=== PATIENT | female | born 1945 | race Caucasian/White ===

== ENCOUNTER 2017-06-22 16:30 | Inpatient (IN) | payer MEDICARE ==
[~2017-06-22] VITALS: Ht 149.9 cm; Wt 84.3 kg
--- NOTE | 2017-06-22 16:26 | NUR ---
TRANSFER FROM ADMISSIONS BY W/C. OREINTED TO ROOM. CALL LIGHT IN REACH. WILL CONT. PLAN OF CARE.
[~2017-06-22 16:30] MED LIST: GLIPIZIDE10 MG PO; RENAGEL800 MG PO
[2017-06-22] MEDS ORDERED: PACERONE200 MG PO ×2 (16:31→19:42)
[2017-06-22] MEDS ORDERED: METOPROLOL TART25 MG PO (16:31)
[2017-06-22] MEDS ORDERED: HYDRALAZINE HCL50 MG PO (16:32)
[2017-06-22] MEDS ORDERED: JANUVIA25 MG PO (16:32)
[2017-06-22] MEDS ORDERED: PRINIVIL20 MG PO (16:32)
[2017-06-22] MEDS ORDERED: SENSIPAR30 MG PO (16:33)
[2017-06-22] MEDS ORDERED: NAMENDA5 MG PO (16:34)
[2017-06-22] MEDS ORDERED: BAYER CHEWABLE81 MG PO (16:34)
[2017-06-22] MEDS ORDERED: REGLAN5 MG PO (16:35)
[2017-06-22] MEDS ORDERED: NEPHRO-VITE RX1 TAB PO (16:36)
[2017-06-22] MEDS ORDERED: LANTUS SOL100 UNIT/1 SC (16:38)
[2017-06-22 16:54] VITALS: BP 151/52; BMI 37.4
--- NOTE | 2017-06-22 17:19 | NUR ---
CONSENTS SIGNED FOR SURGERY. EKG COMPLETED.
[2017-06-22 17:56] LABS: BASOPHILS 0.5 % (0-2); EOSINOPHILS 2.4 % (0-7); HEMATOCRIT 37.1 % (36.0-48.0); HEMOGLOBIN 11.7 g/dL (12-16); IMMATURE GRANULOCYTES 0.2 % (0-5); LYMPHOCYTES 24.4 % (15-50); MCH 32.8 pg (26.0-34.0); MCHC 31.5 g/dL (31.0-37.0); MCV 103.9 fL (80.0-100.0); MEAN PLATELET VOLUME 10.4 fL (7.4-10.4); MONOCYTES 11.6 % (2-11); NEUTROPHILS 60.9 % (40-80); PLATELET COUNT 157 10x3/uL (130-400); RBC 3.57 10x6/uL (4.00-5.40); RDW 12.3 % (11.5-14.5); WBC 6.2 10x3/uL (4.8-10.8)
[2017-06-22 18:09] LABS: APTT 24.7 SECONDS (22.8-39.4); CALCIUM 9.1 mg/dL (8.5-10.1); CARBON DIOXIDE 31.7 mmol/L (21.0-32.0); CREATININE - SERUM 6.4 mg/dL (0.6-1.3); INR 0.97 (0.85-1.17); POTASSIUM - SERUM 4.7 mmol/L (3.5-5.1); PROTIME 12.7 SECONDS (11.6-15.0)
[2017-06-22 19:00] VITALS: BP 176/54
--- NOTE | 2017-06-22 22:30 | NUR ---
R AC 20 GUAGE X 1.
--- NOTE | 2017-06-23 | NUR ---
NPO FOR SURG. PT SLEEPING NO DISTRESS NOTED.
--- NOTE | 2017-06-23 03:00 | NUR ---
SLEEPING NO DISTRESS NOTED. SR UP X 2.
[2017-06-23 04:00] VITALS: BP 149/62
--- NOTE | 2017-06-23 05:00 | NUR ---
CHLORAHEXADINE BATH GIVEN,. NO CO AT TIME.
--- NOTE | 2017-06-23 07:15 | NUR ---
ASSESSMENT DONE. DENIES NEEDS.
[2017-06-23 07:54] VITALS: BP 153/38
--- NOTE | 2017-06-23 09:34 | NUR ---
RESTS WITH EYES CLOSED. NPO FOR SURGERY. WILL CONT. PLAN OF CARE.
--- NOTE | 2017-06-23 10:24 | NUR ---
PT PREOP FOR OR. TO OR VIA BED.
--- NOTE | 2017-06-23 10:33 | NUR ---
TO OR PER BED
[2017-06-23 10:56] VITALS: Ht 149.9 cm; Wt 84.3 kg
[2017-06-23 14:16] VITALS: BP 165/73
--- NOTE | 2017-06-23 17:30 | NUR ---
WITHOUT CHANGES OR DISTRESS NOTED AT THIS TIME. CARLITA NEEDS.
[2017-06-23 19:00] VITALS: BP 154/45
--- NOTE | 2017-06-23 20:03 | NUR ---
RECEIVED REPORT, PT WATCHING TV, DENIES ANY NEEDS AT THIS TIME, BED IS LOW, SRX2, CALL LIGHT IN REACH, WILL CONTINUE PLAN OF CARE
--- NOTE | 2017-06-24 03:47 | NUR ---
ASSESSMENT COMPLETE, SEE FLOWSHEET, PT IS SLEEPING, BED IS LOW, SRX2, CALL LIGHT IN REACH, WILL CONTINUE PLAN OF CARE
[2017-06-24 04:00] VITALS: BP 121/37
--- NOTE | 2017-06-24 05:45 | NUR ---
BLOODSUGAR-50- GAVE KANCHAN & VANESSAAKERS
[2017-06-24 06:06] LABS: ALBUMIN 2.9 g/dL (3.4-5.0); ANION GAP 11.7 mmol/L (8-16); BILIRUBIN - TOTAL 0.37 mg/dL (0.2-1.3); CALCIUM 8.5 mg/dL (8.5-10.1); CARBON DIOXIDE 28.6 mmol/L (21.0-32.0); POTASSIUM - SERUM 5.3 mmol/L (3.5-5.1); PROTEIN - SERUM 6.3 g/dL (6.4-8.2)
[2017-06-24 06:11] LABS: CREATININE - SERUM 8.9 mg/dL (0.6-1.3)
--- NOTE | 2017-06-24 07:42 | NUR ---
NOTIFIED DR. SIM THAT WE CALLED A CODE, THOUGHT PT HAD FALLEN, SHE SAID SHE DIDNT THAT SHE WAS CHOKING ON A DRY ROLL, ASLSO INFORMED JORDIN MIRAMONTES (DAUGHTER ) EXOPLAINED WHAT HAD HAPPENED
[2017-06-24 08:00] VITALS: BP 141/44
--- NOTE | 2017-06-24 08:00 | NUR ---
PT LYING QUIETLY. DENIES ANY NEEDS. RIGHT AC SL. RIGHT AVF NOTED. WILL MONITOR
--- NOTE | 2017-06-24 09:03 | OP ---
PATIENT NAME: JULIO SRIVASTAVA MEDICAL RECORD: [id number] :44 LOCATION:D.M2 D.2126 ADMISSION DATE:06/23/17 SURGEON: OUSMANE SIM MD DATE OF OPERATION: 06/23/2017 REFERRING PHYSICIANS: Dr. Burroughs and Dr. Fitzgerald. 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 OPERATION PERFORMED: Left arm AV fistulogram carried through to the right atrium and balloon angioplasty of a 95% recurrent short segment stenosis of the cephalic arch dilated with an 8 mm and high pressure angioplasty balloon. Exclusion of infected aneurysmal AV fistula body and implantation of an Acuseal early stick PTFE AV graft between the brachial artery and the antecubital space and the proximal cephalic vein with end-to-end anastomosis to the artery, utilizing the cuff of remaining vein for the end-to-end anastomosis and an end-to-side graft to vein proximal anastomosis. Also, debridement of shallow ulceration of the erythematous skin overlying the pseudoaneurysm and percutaneous aspiration of blood from the pseudoaneurysm sent for culture. SURGEON: Ousmane Sim MD ANESTHESIA: General with LMA per CYBER INCIDENT HANDLER. PREOPERATIVE NOTE: Ms. Srivastava is a 71-year-old diabetic, obese white female with end-stage renal disease, who has been dialyzing for quite some time now with a left arm brachiocephalic fistula. She has had problems with a cephalic arch stenosis in the past and also has had an area of erythema and induration and ulceration overlying the body of her fistula where she has a pseudoaneurysm and perigraft or perifistula hematoma roughly the size of a tennis ball. She was admitted to the hospital yesterday. I am concerned for the potential risk of severe hemorrhage or exsanguination. She is brought to the operating room at this time for fistulogram and indicated procedures. DESCRIPTION OF PROCEDURE: Under general anesthesia in supine position, the patient was prepped and draped in a sterile manner. I accessed the fistula, which was rather pulsatile in the upper half above the area of induration and erythema and ulceration was accessed with micropuncture technique and this led up to placement of a 6-Kyrgyz introducer. Contrast injection demonstrated a single fairly short segment stenosis of 95% in the cephalic arch, which did not involve the orifice of the cephalic arch in the axillary or subclavian system. There was no other venous obstruction centrally all the way to the right atrium. A wire was easily passed across the area of stenosis and the cephalic arch stenosis dilated with a quest high pressure balloon with an 8-mm diameter quest balloon inflated to 20 atmospheres to open the area of stenosis. Then with the balloon inflated, a retrograde study was obtained, which demonstrated a patent artery above and below and good looking arteriovenous anastomosis. I then made a transverse antecubital incision and exposed the fistula arterial anastomosis and controlled it with Silastic loop and I dissected above the antecubital space OPERATIVE REPORT [id number] JULIO SRIVASTAVA and encircled the dilated cephalic vein with first with Silastic loop and layer of #0 silk tie. I made another incision over the vein in the upper arm just lateral to the axilla. The cephalic vein was exposed and dissected from the surrounding structures for a distance of about an inch and was controlled with Silastic loops. The vessels were treated with topical papaverine and topical Ancef/gentamicin solution. The patient was given 2000 units of heparin systemically and after 3 minutes, the fistula was clamped and the vein just above the arterial anastomosis divided, the vein above that was ligated with #0 silk. I chose a 6-mm diameter 40 cm long Acuseal graft and performed an end-to-end anastomosis with running 6-0 Prolene. After that, there was good back bleeding from the graft and I then flushed the graft and artery with heparinized saline and clamped the graft. The graft was then placed in a subcutaneous tunnel, very shallow from that site up to the upper arm incision where it was then shortened and beveled and anastomosed end-to-side that is graft to side of artery, again probably to side of vein, again with continuous running 6-0 Prolene. With completion of the last anastomosis and release of the occluding clamps and loops, excellent flow was established in the new AV graft. The patient's heparin was partially reversed with 10 mg of protamine. The wounds were irrigated with Ancef/gentamicin solution. Hemostasis obtained with electrocautery and the wound was infiltrated with 0.25% Marcaine without epinephrine. The wounds were then closed with interrupted inverted 3-0 Vicryl and running intracuticular 4-0 Monocryl and Dermabond glue. They were dressed with Maxorb Ag, Tegaderm and Cavilon skin prep. The area of ulceration was debrided with gauze and basically the scab came off leaving intact healed pink skin beneath. On close examination, there was no evidence of an underlying abscess or fistulous tract. I used an 18-gauge needle and syringe to penetrate this erythematous skin and aspirate any subcutaneous fluid and there was none. I then advanced the needle into the old AV fistula of lumen and aspirated some blood from that and this blood was sent for anaerobic and aerobic culture and sensitivity. The needle was withdrawn and hemostasis obtained with a period of mild direct pressure and observation. That site as well as the puncture site from the 6-Kyrgyz introducer were dressed then with Maxorb and Tegaderm with Cavilon skin prep. The patient was awakened and taken to the recovery room. Blood loss during the operation was essentially none. None was replaced. All sponges, instruments and needles were accounted for. No drain was used and no surgical specimen was submitted for histopathology. Only the bloody fluid was submitted for culture. PLAN: The patient will be able to dialyze tomorrow using her new Acuseal graft and following Acuseal protocol. She very likely unless there is medical complication, which needs to be addressed. She will go home tomorrow and continue her usual outpatient dialysis schedule, using the Acuseal graft and following for 2 weeks, the Acuseal protocol, that is the technologist to access in graft is to wear sterile gloves. They will use 17-gauge needles for the first 2 weeks and for the first 2 weeks flow should not exceed 400 cc per minute. TRANSINT:[id number] Voice Confirmation ID: [id number] DOCUMENT ID: [id number] OPERATIVE REPORT [id number] JULIO SRIVASTAVA JAMES MD at 0903 CC: OLIVIER BURROUGHS MD and MANSI FITZGERALD MD [id number] DICTATION DATE: 06/23/17 1417 CONE WINDER: 06/23/172230 ADM IN [facility] [address] [place] [address]
--- NOTE | 2017-06-24 11:33 | NUR ---
DRIVEWAY SEALER AT BEDSIDE FOR VS. NEEDS ADDRESSED, CONT TO MONITOR.
[2017-06-24 11:53] VITALS: BP 146/41
--- NOTE | 2017-06-24 18:24 | NUR ---
PT HAVING DIAYLIS. NO NEEDS VOICED
--- NOTE | 2017-06-24 19:30 | NUR ---
RECEIVED PT IN BED C/O OF FEELING WEAK AND TIRED JUST FINISHED DIALYSIS ALERT AND ORIENTED WILL CONTINUE TO MONITOR
[2017-06-24 20:00] VITALS: BP 130/41
--- NOTE | 2017-06-24 21:50 | NUR ---
FSBS 181 LANTUS 10 UNITS GIVEN SQ ABDOMEN
[2017-06-25] VITALS: BP 104/34
--- NOTE | 2017-06-25 03:06 | NUR ---
RESTING QUIETLY EYES CLOSED RESP UNLABORED NAD NOTED
[2017-06-25 04:00] VITALS: BP 136/33
--- NOTE | 2017-06-25 07:50 | NUR ---
ASSESSMENT COMPLETED. PT HAS A LEFT ARM AVF. RIGHT AC SL NOTED. DENIES ANY NEEDS. UP AB MENDEL. READY FOR DISCHARGE. WILL MONITOR
[2017-06-25 08:34] VITALS: BP 194/71
--- NOTE | 2017-06-25 10:05 | NUR ---
PT DISCHARGED. IV DCD WITH TIP INTACK. INSTRUCTIONS GIVEN TO PT. TO PRIVATE CAR PER WHEELCHAIR
== END 2017-06-25 11:07 | disposition home or self-care (01) | DRG 252 ==
LOC: OBSVTIME → D.OPS 16:30 → EDSTATUS 06-23 10:00 → D.M2 06-23 15:55
PROVIDERS: Surgery; ADMIT Internal Medicine Nephrology
PROC: 057F3ZZ Dilation of Left Cephalic Vein, Percutaneous Approach (ICD-10-PCS; 2017-06-23)
PROC: 03180JF Bypass Left Brachial Artery to Lower Arm Vein with Synthetic Substitute, Open Approach (ICD-10-PCS; 2017-06-23)
PROC: B51W1ZZ Fluoroscopy of Dialysis Shunt/Fistula using Low Osmolar Contrast (ICD-10-PCS; principal; 2017-06-23 10:00)
PROC: 5A1D00Z (ICD-10-PCS; 2017-06-24)
DX: T82.858A Stenosis of other vascular prosthetic devices, implants and grafts, initial encounter (principal); N18.6 End stage renal disease; L03.114 Cellulitis of left upper limb; I12.0 Hypertensive chronic kidney disease with stage 5 chronic kidney disease or end stage renal disease; T82.7XXA Infection and inflammatory reaction due to other cardiac and vascular devices, implants and grafts, initial encounter; K21.9 Gastro-esophageal reflux disease without esophagitis; I10 Essential (primary) hypertension; E11.22 Type 2 diabetes mellitus with diabetic chronic kidney disease; Z99.2 Dependence on renal dialysis; Z79.4 Long term (current) use of insulin

== ENCOUNTER 2017-08-07 15:50 | Inpatient (IN) | payer MEDICARE ==
[~2017-08-07] VITALS: Ht 149.9 cm; Wt 85.7 kg
[~2017-08-07 15:50] MED LIST changes: +BAYER CHEWABLE81 MG PO; +HYDRALAZINE HCL50 MG PO; +JANUVIA25 MG PO; +LANTUS SOL100 UNIT/1 SC; +METOPROLOL TART25 MG PO; +NAMENDA5 MG PO; +NEPHRO-VITE RX1 TAB PO; +PACERONE200 MG PO; +PRINIVIL20 MG PO; +REGLAN5 MG PO; +SENSIPAR30 MG PO
--- NOTE | 2017-08-07 16:38 | NUR ---
PT RECIEVED TO ROOM FROM ADMISSIONS. RR EVEN AND UNLABORED, VSS. PT DENIES NEEDS AT THIS TIME. CONSENTS OBTIANED FOR PROCEDURE. INTRODUCED SELF AND PLACED NAME ON WHITE BOARD, WILL CTM.
[2017-08-07 16:44] LABS: BASOPHILS 0.1 % (0-2); EOSINOPHILS 0.3 % (0-7); HEMATOCRIT 24.4 % (36.0-48.0); HEMOGLOBIN 7.8 g/dL (12-16); IMMATURE GRANULOCYTES 0.2 % (0-5); LYMPHOCYTES 10.7 % (15-50); MCH 32.8 pg (26.0-34.0); MCV 102.5 fL (80.0-100.0); MEAN PLATELET VOLUME 9.5 fL (7.4-10.4); MONOCYTES 6.6 % (2-11); NEUTROPHILS 82.1 % (40-80); PLATELET COUNT 200 10x3/uL (130-400); RBC 2.38 10x6/uL (4.00-5.40); RDW 14.4 % (11.5-14.5); WBC 12.5 10x3/uL (4.8-10.8)
--- NOTE | 2017-08-07 17:00 | NUR ---
STARTED 20G IV TO RIGHT WRIST X1 STICK. DRESSING CDI. PT TOLERATED WELL.
[2017-08-07 17:02] LABS: CALCIUM 8.5 mg/dL (8.5-10.1); CARBON DIOXIDE 19.4 mmol/L (21.0-32.0); CREATININE - SERUM 14.6 mg/dL (0.6-1.3)
[2017-08-07 17:15] LABS: POTASSIUM - SERUM 6.4 mmol/L (3.5-5.1)
[2017-08-07 17:18] VITALS: BP 114/39
--- NOTE | 2017-08-07 17:40 | NUR ---
PT TRANSFERED TO SURGERY VIA BED. WILL CTM WHEN PT RETURNS FROM PROCEDURE.
[2017-08-07 19:00] VITALS: BP 106/59
--- NOTE | 2017-08-07 19:25 | NUR ---
PATIENT STATES NO FAMILY WITH HER PREOPERATIVELY.
--- NOTE | 2017-08-07 19:26 | NUR ---
SMALL SKIN TEAR NOTED ON LEFT FOREARM.
--- NOTE | 2017-08-07 19:50 | NUR ---
RECIEVED TO ROOM 2125 FROM O.R. VITALS STABLE, 97 TEMP, BP 110/70, HR 77, RESPERATION EVEN AT 20, SPO2 97% ON O2 AT 3 LITER. PLACED ON TELEMETRY, 73 SR PER MT. DRSG TO LEFT CHEST FROM HEMOSPLIT PLACEMENT C/D/I. PT DENIES PAIN OR NEEDS, BED LOW, CL IN REACH.
[2017-08-07 19:56] VITALS: BP 110/59
--- NOTE | 2017-08-07 20:13 | NUR ---
SPOKE WITH TG IN DIALYSIS, TRANSFERRING PT DOWN BY BED.
--- NOTE | 2017-08-07 23:15 | NUR ---
PT STILL IN DIALYSIS.
[2017-08-08] VITALS: BP 93/51
--- NOTE | 2017-08-08 02:15 | NUR ---
RESTING WITH EYES CLOSED, RESPERATIONS EVEN NO S/S DISTRESS NOTED.
--- NOTE | 2017-08-08 02:54 | NUR ---
CALL LIGHT IN REACH, WILL CONTINUE WITH PLAN OF CARE.
[2017-08-08 04:03] VITALS: BP 101/59
--- NOTE | 2017-08-08 07:24 | NUR ---
AM ROUNDS- PT IN BED, DENIES ANY NEEDS AT THIS TIME. BED LOW AND WHEELS LOCKED, BEDSIDE RAILS X2, CALL LIGHT IN REACH, RESP EVEN AND UNLABORED, RT WRIST IV SL. NAD NOTED, WILL CONTINUE TO MONITOR.
[2017-08-08 07:43] LABS: BASOPHILS 0.3 % (0-2); EOSINOPHILS 1.8 % (0-7); IMMATURE GRANULOCYTES 0.2 % (0-5); LYMPHOCYTES 14.8 % (15-50); MCH 32.6 pg (26.0-34.0); MCHC 31.8 g/dL (31.0-37.0); MCV 102.7 fL (80.0-100.0); MEAN PLATELET VOLUME 10.1 fL (7.4-10.4); MONOCYTES 6.4 % (2-11); NEUTROPHILS 76.5 % (40-80); RDW 14.3 % (11.5-14.5)
[2017-08-08 07:56] LABS: WBC 6.2 10x3/uL (4.8-10.8)
[2017-08-08 07:57] LABS: HEMATOCRIT 19.2 % (36.0-48.0); HEMOGLOBIN 6.1 g/dL (12-16); PLATELET COUNT 118 10x3/uL (130-400); RBC 1.87 10x6/uL (4.00-5.40)
[2017-08-08 08:00] VITALS: BP 123/46
[2017-08-08 08:03] LABS: ANION GAP 13.4 mmol/L (8-16); CALCIUM 7.6 mg/dL (8.5-10.1); POTASSIUM - SERUM 5.6 mmol/L (3.5-5.1)
[2017-08-08 08:04] LABS: CARBON DIOXIDE 29.2 mmol/L (21.0-32.0); CREATININE - SERUM 8.1 mg/dL (0.6-1.3)
[2017-08-08 10:38] VITALS: Ht 149.9 cm; Wt 85.7 kg
--- NOTE | 2017-08-08 10:52 | OP ---
PATIENT NAME: JULIO SRIVASTAVA MEDICAL RECORD: [id number] :44 LOCATION:D. D.2126 ADMISSION DATE:08/07/17 SURGEON: OUSMANE SIM MD DATE OF OPERATION: 08/07/2017 REFERRED BY: Dr. Ferguson PREOPERATIVE DIAGNOSES: End-stage renal disease, dependent on hemodialysis, thrombosis of left arm AV graft and morbid obesity. POSTOPERATIVE DIAGNOSES: End-stage renal disease, dependent on hemodialysis, thrombosis of left arm AV graft and morbid obesity. OPERATION PERFORMED: Insertion of a left internal jugular 19 cm tunneled HemoSplit dialysis catheter done with ultrasound and fluoroscopic guidance. SURGEON: Ousmane Sim MD ANESTHESIA: General with LMA per ANDROID ARCHITECT. PREOPERATIVE NOTE: Ms. Srivastava is a morbidly obese diabetic hypertensive white female with end-stage renal disease and has been dialyzing with a left arm AV fistula graft hybrid that thrombosed and attempts to perform mechanical thrombectomy today at [facility] were unsuccessful. She needs to dialyze and Dr. Ferguson has consulted me. We discussed this on the telephone extensively earlier today. The patient was admitted to the hospital and she is kept n.p.o. and brought to the operating room to implant a tunneled HemoSplit dialysis catheter. She will need a new access in the next few weeks. Under general anesthesia in supine position, the patient was prepped and draped in sterile manner. The neck examined with ultrasound, I found the right internal jugular vein was gone from prior use for dialysis access I am sure. The thyroid was quite enlarged and encroached on the carotid and jugular vessels bilaterally. The left internal jugular vein was opened and of normal caliber. I made an incision and then through that incision with ultrasound guidance, inserted a needle and guidewire via the internal jugular vein. Under fluoroscopy, I advanced dilators over the guidewire and lastly a dilator peel-away introducer. I chose a 19-cm HemoSplit catheter and placed it in a short subcutaneous tunnel from remote entry site and it was inserted through the peel-away sheath. Final fluoroscopic exam demonstrated satisfactory placement of the catheter tip in the right atrium. This was with the Dacron felt cuff all the way up to the cervical incision. The catheter was accessed and aspirated, free return of blood from each lumen confirmed. It was then flushed with saline and then heparin lock, clamped and capped. It was sutured to the skin with a 2-0 silk. The entry wound was snugged up around the catheter with a single intracuticular inverted 3-0 Vicryl suture and the cervical incision was closed with inverted intracuticular 3-0 Vicryl and Dermabond glue and dressed with Maxorb AG and Tegaderm. The catheter at the entry site was dressed with a Biopatch and a central venous dressing. The patient was awakened and taken to the recovery room in stable condition. She will have a chest x-ray there and then we will go on back to her room on med 2 and then have dialysis later this evening. Blood loss during the operation about 10 cc, none was replaced. All sponges, instruments and needles were accounted for. No drain was used and no surgical specimen was submitted for histopathology. OPERATIVE REPORT [id number] JULIO SRIVASTAVA MARCH I will plan to reevaluate the patient over the next few days and plan for her to be returned to the operating room in the next few weeks for a new access. TRANSINT:[id number] Voice Confirmation ID: [id number] DOCUMENT ID: [id number] OUSMANE SIM MD at 1052 CC: CRISTHIAN FERGUSON MD [id number] DICTATION DATE: 08/07/171900 WORKERS COMPENSATION ADMINISTRATOR: 08/08/17 0117 ADM IN [facility] [address] [place] [address]
[2017-08-08 12:00] VITALS: BP 127/40
--- NOTE | 2017-08-08 12:08 | NUR ---
FIRST UNIT OF PRBCS STARTED INFUSING, VITAL SIGNS STABLE. PT DENIES ANY NEEDS AT THIS TIME. CALL LIGHT IN REACH, NAD NOTED, WILL CONTINUE TO MONITOR.
--- NOTE | 2017-08-08 15:32 | NUR ---
FIRST UNIT OF PRBCS DONE INFUSING AT THIS TIME. SECOND UNIT HUNG AT THIS TIME. PT IN BED, DENIES ANY NEEDS AT THIS TIME. CALL LIGHT IN REACH, NAD NOTED, WILL CONTINUE TO MONITOR.
[2017-08-08 16:00] VITALS: BP 143/51
--- NOTE | 2017-08-08 16:00 | NUR ---
PT TRANSFERED TO DIALYSIS VIA WHEELCHAIR, NAD NOTED.
--- NOTE | 2017-08-08 18:44 | NUR ---
PT TRANSFERED BACK TO ROOM 2125 FROM DIALYSIS, NAD NOTED, PT DENIES ANY NEEDS AT THIS TIME. REPOSITIONED PT UP IN BED. PT DENIES ANY NEEDS AT THIS TIME CALL LIGHT IN REACH, NAD NOTED, WILL CONTINUE TO MONITOR.
[2017-08-08 19:00] VITALS: BP 140/63
--- NOTE | 2017-08-08 19:30 | NUR ---
RESTING QUIETLY WATCHING TV RESP UNLABORED DENIES ANY NEEDS OR DISCOMFORT NAD NOTED
--- NOTE | 2017-08-08 20:30 | NUR ---
PT STANDING AT SIDE OF BED WITH GOWN OFF AND SCREAMING, "HELP ME, WHERE AM I, HELP ME" ASSISTED PT BACK TO BED, EXPALINED TO PT THAT SHE IS IN THE HOSPITAL AND SHE IS HERE BECAUSE HER FISTULA WASNT WORKING AND THAT SHE HAD TO HAVE A DIALYSIS CATHETER PLACED, PT STATED THAT SHE ALREADY KNEW THAT BUT THEN STILL INSISTED THAT SHE WAS NOT IN THE HOSPITAL AND THAT SHE WAS IN THE WRONG ROOM. REPOSITIONED IN BED FOR COMFORT, ATIVAN 2 MG GIVEN FOR S/S AGITAITON. BED LOW, CL IN REACH, SR UP X3, BED ALARM IN USE FOR PT SAFETY. WILL CONT TO MONITOR.
[2017-08-08 22:18] LABS: HEMATOCRIT 28.3 % (36.0-48.0); HEMOGLOBIN 9.4 g/dL (12-16)
[2017-08-09] VITALS: BP 122/57
--- NOTE | 2017-08-09 00:21 | NUR ---
SAMPLE FINISHER AT BED SIDE, BATH AND LINEN CHANGE COMPLETE. DRSG TO LEFT CHEST HEMOSPILT CHANGED USING STERILE TECHNIQUE. REPOSITIONED IN BED FOR COMFORT. BED LOW, CL IN REACH, BED ALARM IN USE.
--- NOTE | 2017-08-09 02:58 | NUR ---
RESTING WITH EYES CLOSED, RESPERATIONS EVEN, NO S/S DISTRESS NOTED.
--- NOTE | 2017-08-09 03:23 | NUR ---
PT CLIMBING OUT OF BED, DRSG TO LEFT CHEST HEMOSPLIT OFF, PT SLAPPING MY HAND I TRY TO REPLACED DRSG, INFORMED PT THAT I HAVE TO REPLACED DRSG BECAUSE IT HELPS KEEP INFECTION AWAY AND THAT SHE NEEDS TO QUIET PULLING AT THE CATHETERS BECAUSE IF SHE PULLS THEM OUT IT WILL HURT HER AND SHE WILL BLEED ALOT, PT CONFUSED AND STATES THAT SHE NEEDS GET OUT OF HERE AND GO TO THE HOSPITAL, INFORMED PT THAT SHE IS IN THE HOSPITAL AND THAT WE ARE HERE TO HELP HER. ATIVAN 2 MG GIVEN FOR S/S AGITATION. BED LOW, CL IN REACH, BED ALARM IN USE.
[2017-08-09 04:37] VITALS: BP 135/73
[2017-08-09 08:42] VITALS: BP 147/55
--- NOTE | 2017-08-09 09:51 | NUR ---
OUT TO DIALYSIS
--- NOTE | 2017-08-09 13:00 | NUR ---
BACK FROM DIALYSIS - RESTING IN BED - DENIES ANY NEEDS AT THIS TIME
--- NOTE | 2017-08-09 15:54 | NUR ---
RESTING R SIDE W/ EYES CLOSED
--- NOTE | 2017-08-09 16:29 | NUR ---
Patient Name: JULIO BRAMBILA Admission Status: Urgent Accout number: [id number] Admission Date: 08-07-2017 : 1945 Admission Diagnosis: Attending: MANSI FITZGERALD Current LOS: 2 Anticipated DC Date: 08-09-2017 Planned Disposition: Home Primary Insurance: MEDICARE A & B Discharge Planning Comments: * Is the patient Alert and Oriented? Yes 0 * How many steps to enter\exit or inside your home? 3 0 * PCP DR. SOLORIO 0 * Pharmacy [facility] 0 * Preadmission Environment Home with Family 0 * ADLs Independent 0 * Equipment Cane Walker 0 * Other Equipment NO MEDICAL EQUIPMENT PROVIDER PREFERENCE 0 * List name and contact numbers for known caregivers / representatives who currently or will assist patient after discharge: JORDIN MIRAMONTES, DAUGHTER, 0 * Community resources currently utilized None 0 * Please name any agencies selected above. OUTPATIENT DIALYSIS, [facility], MWF, [facility] 0 * Additional services required to return to the preadmission environment? No 0 * Can the patient safely return to the preadmission environment? Yes 0 * Has this patient been hospitalized within the prior 30 days at any hospital? No [address] FITZGERALD WHO REPORTED THAT PT IS READY TO DISCHARGE TODAY IF PT HAS A RIDE HOME. CM MET WITH PT IN ROOM TO DISCUSS DISCHARGE PLANNING AND NEEDS. PT REPORTS LIVING AT HOME INDEPENDENTLY WITH HER GRANSON THAT ASSISTS WITH ANYTHING THAT SHE MIGHT NEED. PT HAS CANE AND WALKER WITH NO MEDICAL EQUIPMENT PROVIDER PREFERENCE. PT HAS AND NO OUTSIDE SERVICES ASSISTING IN THE HOME. PT ATTENDS OUTPATIENT DIALYSIS, MWF IN [facility], [facility] TRANSPORTATION TO AND FROM DIALYSIS. CM DISCUSSED AVAILABILITY OF HOME HEALTH, REHAB SERVICES AND MEDICAL EQUIPMENT. PT DENIES DISCHARGE NEEDS, REPORTS HER DAUGHTER WILL PICK HER UP FOR DISCHARGE HOME, ASKED CM TO CALL HER TODAY. IMPORTANT MESSAGE FROM MEDICARE PROVIDED AND EXPLAINED. CM CALLED PT'S DAUGHTER, JORDIN MIRAMONTES, DAUGHTER, , WHO REPORTS SHE WAS WAITING FOR THE CALL TO PICK HER MOTHER UP AND WILL BE THERE IN ABOUT 2 HOURS. CM NOTIFIED PT AND COMMERCIAL LEASING AGENT NURSE. RENAL NURSE ROD NOTIFIED FOR DISCHARGE ORDERS. Recruiter Account Manager: Darius Evans
--- NOTE | 2017-08-09 18:47 | NUR ---
PIV D/C WITH CATH INTACT. DISCHARGE TEACHING PROVIDED AND PAPERS SIGNED. PT LEAVING NOW. NO FURTHER NEEDS.
[2017-08-10 09:17] LABS: HEPATITIS C ANTIBODY <0.1 (0.0-0.9)
== END 2017-08-09 18:48 | disposition home or self-care (01) | DRG 314 ==
LOC: D.M2 15:50
PROVIDERS: Surgery; ADMIT Internal Medicine Nephrology
PROC: B5181ZA Fluoroscopy of Superior Vena Cava using Low Osmolar Contrast, Guidance (ICD-10-PCS; 2017-08-07)
PROC: B548ZZA Ultrasonography of Superior Vena Cava, Guidance (ICD-10-PCS; 2017-08-07)
PROC: 02HV33Z Insertion of Infusion Device into Superior Vena Cava, Percutaneous Approach (ICD-10-PCS; principal; 2017-08-07 14:15)
DX: T82.868A Thrombosis due to vascular prosthetic devices, implants and grafts, initial encounter (principal); N18.6 End stage renal disease; I12.0 Hypertensive chronic kidney disease with stage 5 chronic kidney disease or end stage renal disease; Y83.8 Other surgical procedures as the cause of abnormal reaction of the patient, or of later complication, without mention of misadventure at the time of the procedure; E11.22 Type 2 diabetes mellitus with diabetic chronic kidney disease; Z99.2 Dependence on renal dialysis; E87.5 Hyperkalemia; R41.0 Disorientation, unspecified; D63.1 Anemia in chronic kidney disease; E66.01 Morbid (severe) obesity due to excess calories; Z68.38 Body mass index [BMI] 38.0-38.9, adult

== ENCOUNTER 2017-08-30 17:14 | Inpatient (IN) | payer MEDICARE ==
[2017-08-30 21:40] LABS: BASOPHILS 0.2 % (0-2); EOSINOPHILS 2.5 % (0-7); HEMATOCRIT 27.1 % (36.0-48.0); HEMOGLOBIN 8.6 g/dL (12-16); IMMATURE GRANULOCYTES 0.7 % (0-5); LYMPHOCYTES 19.8 % (15-50); MCHC 31.7 g/dL (31.0-37.0); MCV 103.8 fL (80.0-100.0); MONOCYTES 9.9 % (2-11); NEUTROPHILS 66.9 % (40-80); RBC 2.61 10x6/uL (4.00-5.40); RDW 17.4 % (11.5-14.5); WBC 6.1 10x3/uL (4.8-10.8)
[2017-08-30 22:05] LABS: PLATELET COUNT 204 10x3/uL (130-400)
[2017-08-30 22:16] LABS: ALBUMIN 2.4 g/dL (3.4-5.0); ANION GAP 13.8 mmol/L (8-16); BILIRUBIN - TOTAL 0.7 mg/dL (0.2-1.3); CALCIUM 10.5 mg/dL (8.5-10.1); CARBON DIOXIDE 27.8 mmol/L (21.0-32.0); CREATININE - SERUM 5.3 mg/dL (0.6-1.3); POTASSIUM - SERUM 3.6 mmol/L (3.5-5.1); PROTEIN - SERUM 6.5 g/dL (6.4-8.2)
[2017-08-31] VITALS (18 sets, daily range): BP systolic 73–124; BP diastolic 25–88; BMI 36.8; BMI 36.7
--- NOTE | 2017-08-31 01:02 | NUR ---
REPORT RECEIVED FROM LIZ TIJREINA, FROM ER. PT [facility], PT HAS A WHEEL CHAIR BROUGHT FROM HOME TO KEEP IN ROOM. PT ON ROOM AIR. HAS A 20 G IN RIGHT AC. PT IS AAO WITH A HISTORY OF DEMENTIA. LAST BP 111/51. IT IS REPORTED THAT PT IS X2 ASSIST IF OOB. WILL ASSESS WHEN ARRIVES TO ROOM
--- NOTE | 2017-08-31 01:46 | NUR ---
PT ARRIVED TO ROOM. TRANSFERED TO BED FROM [facility]. PT DID NOT ASSIST. PT HAS NS INFUSING TO RIGHT AC AT 50. PT C/O PAIN IN BACK AND IN BODY, WHINNING AND MOANING OUT LOUD. GAVE A VERBAL ORDER FOR NORCO 10. WILL PUT ORDER IN MARIA LUISA. PT IS RESERVE LEFT ARM. PUT SIGNS UP ABOVE BED. PT IS AAO. LAYING ON LEFT SIDE. PT HAS A LARGE AMOUNT OF BRUISES. SHE STATES IS FROM A FALL. PT HAS A WHEEL CHAIR IN ROOM THAT BELONGS TO PT. WILL CPOC
--- NOTE | 2017-08-31 02:58 | NUR ---
GIVING NORCO 10 FOR 10/10 PAIN IN RECTUM AND LOWER BACK
--- NOTE | 2017-08-31 02:58 | NUR ---
PT O2 NOW 95% ON 2L NC
--- NOTE | 2017-08-31 03:30 | NUR ---
BP HAS STAYED LOW. 0220 85/36.. INCREASED FLUIDS TO 150 FOR ONE HOUR. BP AT 0325 85/35. PT HAS NO S/S OF DISTRESS. PT ONLY C/O PAIN. DEMEROL WAS GIVEN IN ER. REPORT FROM ER STATED PT BP WAS 111/51 PRIOR TO ADMINISTRATION OF DEMEROL. WILL CONTINUE TO MONITOR BP. REPORTED TO CHARGE NURSE KERMIT. MELANIE GUTIERREZ FORESTRY FARM LABORER FOR JESUSITA MORTENSEN CPOC
[2017-08-31] MEDS ORDERED: HYDROCODONE-APA1 TAB PO (03:40)
--- NOTE | 2017-08-31 06:05 | NUR ---
AT 0530 BP 78/39 HR 70 GAVE A 100ML BOLUS AT 0603 86/46 HR 77 PAGED AND SPOKE WITH MATT. ORDERED A 500ML NS BOLUS. WILL RECHECK BP IN AN HOUR. PT STATES SHE FEELS FINE. JUST TIRED. PT HAS NO S/S OF DISTRESS. DENIES ANY NEEDS. WILL CPOC
[2017-08-31 07:29] LABS: BASOPHILS 0.2 % (0-2); EOSINOPHILS 0.2 % (0-7); HEMATOCRIT 27.1 % (36.0-48.0); HEMOGLOBIN 8.4 g/dL (12-16); IMMATURE GRANULOCYTES 0.4 % (0-5); MCH 32.8 pg (26.0-34.0); MEAN PLATELET VOLUME 10.3 fL (7.4-10.4); NEUTROPHILS 89.2 % (40-80); PLATELET COUNT 170 10x3/uL (130-400); RBC 2.56 10x6/uL (4.00-5.40); RDW 17.8 % (11.5-14.5); WBC 4.7 10x3/uL (4.8-10.8)
[2017-08-31 07:30] LABS: MCV 105.9 fL (80.0-100.0)
--- NOTE | 2017-08-31 07:30 | NUR ---
RECIEVED REPORT ON PATIENT, PATIENT IS ALERT AND ORIENTED AT THIS TIME. PATIENT HAS A R AC IV WITH VANCOMYCIN INFUSING. PATIENT IS ON 2L/MIN VIA NC WITH NAD NOTED AT THIS TIME. PATIENT DENIES ANY NEEDS OR COMPLAINTS AT THIS TIME. WILL CONT TO MONITOR PATIENT. BED LOW AND LOCKED. CPOC
[2017-08-31 08:01] LABS: ALBUMIN 2.1 g/dL (3.4-5.0); ANION GAP 17.7 mmol/L (8-16); BILIRUBIN - TOTAL 0.57 mg/dL (0.2-1.3); CALCIUM 10.2 mg/dL (8.5-10.1); CARBON DIOXIDE 22.7 mmol/L (21.0-32.0); CREATININE - SERUM 5.7 mg/dL (0.6-1.3); PROTEIN - SERUM 6.2 g/dL (6.4-8.2); THYROID STIMULATING HORMONE 3.1 uIU/mL (0.36-3.74)
[2017-08-31 08:05] LABS: POTASSIUM - SERUM 4.4 mmol/L (3.5-5.1)
--- NOTE | 2017-08-31 10:07 | NUR ---
PATIENT RESTING, AROUSES TO VOICE. PATIENT BP 106/70. NAD NOTED AT THIS TIME. WILL CONT TO MONITOR PATIENT. CPOC
--- NOTE | 2017-08-31 10:44 | NUR ---
PATIENT IS GOING FOR HEMOSPLIT CATHETER REPLACEMENT. PATIENT IS CONFUSED. CALLED PATIENT DAUGHTER, NUMBER LISTED ON CHART AND DID NOT GET AN ANSWER, WILL TRY AGAIN LATER. CPOC
--- NOTE | 2017-08-31 11:15 | NUR ---
PROCEDURE EXPLAINED TO PATIENT, PATIENT IS ORIENTED X 3 AT THIS TIME. SUSAN, CLEANING TECHNICIAN AT BEDSIDE TO WITNESS. PATIENT SIGNED CONSENTS. DENIES ANY QUESTIONS. CPOC
--- NOTE | 2017-08-31 12:00 | NUR ---
SCDS ON AND TOLERATING AT THIS TIME. PATIENT RESTING DENIES ANY NEEDS. CPOC
--- NOTE | 2017-08-31 12:06 | NUR ---
SPOKE WITH CLAY MIRAMONTES, PATIENTS SON-IN-LAW. INFORMED HIM THAT PATIENT WAS HAVING HER HEMOSPLIT REPLACED TODAY. CLAY DENIES ANY QUESTIONS. CPOC
--- NOTE | 2017-08-31 15:34 | NUR ---
PATIENT PREOP AND READY FOR SURGERY
--- NOTE | 2017-08-31 15:46 | NUR ---
PATIENT GONE FOR SURGERY. CPOC
--- NOTE | 2017-08-31 17:28 | NUR ---
PATIENT HAS MULTIPLE BRUISING ALL OVER BODY-ARMS, LOWER LEGS, LEFT UPPER ARM AND CHEST AND SOME EVEN NOTED ON CARMELITA WARREN.
--- NOTE | 2017-08-31 17:57 | NUR ---
CONSULTED ANESTHESIA REGARDING DECREASED BLOOD PRESSURE. GIVEN VERBAL ORDERS TO GIVEN EPHEDRINE 10MG IV AND 40MG IM X1 IN PACU NOW.
--- NOTE | 2017-08-31 18:25 | NUR ---
CONSULTED DR SIM REGARDING RESPIRATORY DISTRESS AND HYPOTENSION. RECEIVED VERBAL ORDERS TO ADMIT TO ICU/
--- NOTE | 2017-08-31 18:26 | NUR ---
CONSULTED ANETHESIA REGARDING RESPIRATORY DISTRESS. GIVEN VERBAL ORDERS TO ORDER ABG'S STAT.
--- NOTE | 2017-08-31 19:27 | NUR ---
1830 PT RECIEVED FROM THE RR VIA BED.. PT IS AWAKE .. RIGHT ARM AC PIV .. BP LOW .. HR 112.. 184 DR MC CALLED AND ORDERS RECIEVED.. BICARB GIVEN AND LEVOPHED HUNG BUT NOT STARTED..
--- NOTE | 2017-08-31 19:45 | NUR ---
SHIFT ASSESSMENT COMPLETED. SEE ASSESSMENT FOR DETAILS. HARD TO UNDERSTAND DUE TO LIPS DRY AND CRACKING. TONGUE ALSO SCALY AND DRY. WATER OFFERED AND ACCEPTED. RT AC PIV S.L. 20G. B/P'S 120'S CURRENTLY SYSTOLIC. NO NEED FOR LEVPOHED GTT. MULTIPLE AREA OF BRUISING NOTED TO LEFT BREAST, BILATERAL ARMS AND A SPOT ON LUMBAR SPINE AREA. ASKED ABOUT BROKEN HIP, REPORTS SHE DOESN'T KNOW IF IT IS BROKEN OR NOT. DISORIENTED TO PLACE. THINKS SHE IS IN [place]. REORIENTED. O2 @ 6LPM/OXIMIZER. UNABLE TO PROGRAM SUPERVISOR A PULSE OX ON ANY EXTREMITY AT THIS TIME. TEMP 96.6, WARM BLANKETS GIVEN. WEARING INCONTINENT BRIEF, SMELL OF BM NOTED, WILL CLEAN PERINEAL AREA. WILL CONTINUE TO MONITOR.
--- NOTE | 2017-08-31 20:00 | NUR ---
LAB CALLED TO MAKE SURE TYPE AND SCREEN TO BE DONE.
--- NOTE | 2017-08-31 21:30 | NUR ---
DR. MC CALLED AND MADE AWARE OF INCONSISTANT B/P'S TO ALL 3 EXTREMITIES ABLE TO TAKE IT IN. ALSO INFORMED OF HEART RATE JUMPING UP TO 140'S AND MAINTAINING 120'S AND RUNS OF IRREGULAR RHYTHMS BUT NOT SUSTAINING. NO NEW ORDERS AT THIS TIME. WILL CONTINUE TO MONITOR.
--- NOTE | 2017-08-31 21:45 | NUR ---
UNIT OF PRBC'S STARTED BY THIAGO LEI RN.
--- NOTE | 2017-08-31 23:30 | NUR ---
HEART RATE MORE SINUS IN NATURE. FSBS ASSESSED. INSULIN GIVEN PER SLIDING SCALE PARAMETERS FOR 265. SIPS OF WATER AND 1/2 SUGAR FREE JELLO GIVEN. DID NOT WANT TO FINISH IT. REASSESSMENT COMPLETED. SEE ASSESSMENT FLOWSHEET. HAD TO REORIENT TO PLACE. WILL MONITOR.
[2017-09-01] VITALS (30 sets, daily range): BP systolic 83–128; BP diastolic 30–87
--- NOTE | 2017-09-01 00:45 | NUR ---
UNIT OF PRBC'S COMPLETED. PULSE OX NOW PICKING UP 99-100%. DECREASED O2 TO 3LPM/OXIMIZER.
--- NOTE | 2017-09-01 02:00 | NUR ---
EYES CLOSED. NO ACUTE DISTRESS NOTED. WILL CONTINUE TO MONITOR.
--- NOTE | 2017-09-01 02:55 | NUR ---
REASSESSMENT COMPLETED. SEE ASSESSMENT FLOWSHEET. AWAKENED BY TAKING AXILLARY TEMPERATURE. STARTED MUMBLING AND MOVING LOWER LIPS. ASKED IF SHE WAS COLD AND AFTER ASKING MULTIPLE TIMES, SHOKE HEAD YES TO BEING COLD. COVERED WITH BLANKET. NS INFUSING TO RT AC 20G PIV @ 50ML/HR. WILL MONITOR.
--- NOTE | 2017-09-01 03:55 | NUR ---
SARAH PERERA AT BEDSIDE TO DRAW AM LABS.
--- NOTE | 2017-09-01 04:20 | NUR ---
PINK PAD AND PERINEAL AREA CLEANSED. MINIMAL WETNESS NOTED ON PINK PAD AND SMALL SMEAR NOTED. REPOSITIONED IN BED FOR COMFORT AND PRESSURE RELIEF. TURNED TO LEFT SIDE WITH PILLOW. RT AC PIV LEAKING A SMALL AMT. IV SITE DRSG CHANGED AND ASSESSED SITE. WILL MONITOR.
--- NOTE | 2017-09-01 04:30 | NUR ---
SWITCHED O2 FROM 3L/MIN OXIMIZER TO 3L/MIN NASAL CANNULA. O2 SAT AFTER CHANGE 96-97%. WILL CONTINUE TO MONITOR.
--- NOTE | 2017-09-01 05:37 | NUR ---
O2 CANNULA WAS OUT OF NARES AND ON HER FOREHEAD. O2 SATS WERE 95%. PLACED BACK IN NARES AND O2 SAT NOW 100%. WILL MONITOR.
[2017-09-01 05:38] LABS: BASOPHILS 0 % (0-2); EOSINOPHILS 0.1 % (0-7); HEMATOCRIT 29.7 % (36.0-48.0); HEMOGLOBIN 9.5 g/dL (12-16); IMMATURE GRANULOCYTES 0.7 % (0-5); LYMPHOCYTES 9.9 % (15-50); MCH 32.2 pg (26.0-34.0); MEAN PLATELET VOLUME 10.8 fL (7.4-10.4); MONOCYTES 7.1 % (2-11); NEUTROPHILS 82.2 % (40-80); PLATELET COUNT 147 10x3/uL (130-400); RBC 2.95 10x6/uL (4.00-5.40); RDW 19.3 % (11.5-14.5)
[2017-09-01 05:39] LABS: MCV 100.7 fL (80.0-100.0)
[2017-09-01 05:57] LABS: ANION GAP 15.4 mmol/L (8-16); CALCIUM 10.1 mg/dL (8.5-10.1); CREATININE - SERUM 6.7 mg/dL (0.6-1.3)
--- NOTE | 2017-09-01 06:00 | NUR ---
AM FSBS ASSESSED. INSULIN GIVEN PER PROTOCOL WELL IV STEROIDS. WILL MONITOR.
[2017-09-01 06:05] LABS: PHOSPHOROUS 9.7 mg/dL (2.5-4.9); POTASSIUM - SERUM 5.4 mmol/L (3.5-5.1)
--- NOTE | 2017-09-01 08:14 | NUR ---
PT PULLED UP AND POSITIONED FOR BREAKFAST. DENIES PAIN AT THIS TIME.
--- NOTE | 2017-09-01 09:37 | NUR ---
LALA ARANA FROM [facility] CALLED TO CHECK UP ON PATIENT. UPDATE PROVIDED. ASKED HER IF FAMILY WAS AWARE PATIENT AT HOSPITAL AND IN ICU. SHE SAID SHE WOULD VERIFY, AND NOTIFY IF HAVE NOT.
--- NOTE | 2017-09-01 10:24 | NUR ---
MELQUIADES FROM DR LEON OFFICE CALLED. WANTS CT OF HIP.
--- NOTE | 2017-09-01 11:36 | NUR ---
ANYA FROM CT CALLED TO ASK ABOUT IMAGING AND IF WAS A GOOD TIME TO COME GET PATIENT. WILL COME TO GET HER IN JUST A FEW MINUTES.
--- NOTE | 2017-09-01 11:44 | NUR ---
PT OFF UNIT FOR CT
--- NOTE | 2017-09-01 12:57 | NUR ---
LUNCH TRAY REMOVED. PT ATE A COUPLE OF BITES OF FISH. DID NOT WANT ANYTHING ELSE FROM TRAY EXCEPT TO KEEP HER COOKIES. ORDER FOR WILTON MCINTYRE
--- NOTE | 2017-09-01 13:09 | EC ---
PATIENT:JULIO BRAMBILA DATE OF SERVICE: 08/30/17 SEX: F MEDICAL RECORD: [id number] DATE OF : 43 LOCATION:[facility] AGE OF PATIENT: 72 ADMISSION DATE: 08/30/17 REFERRING PHYSICIAN: INTERPRETING PHYSICIAN: JULY LOWE MD ECHOCARDIOGRAM REPORT ECHO CHARGES 4 ECHO COMPLETE CLINICAL DIAGNOSIS: HYPOTENSION ECHOCARDIOGRAPHIC MEASUREMENTS (adult normal given) AC root (d.<3.7cm) 3.1 cm LV Septum d (<1.2 cm> 1.4 cm Valve Excursion 0.90 cm LV Septum (systole) 1.8 cm Left Atria (s.<4.0cm> 4.5 cm LVPW d(<1.2cm) 1.4 cm RV (d.<2.3cm) 1.6 cm LVPW (sytole) 5.4 cm LV diastole(<5.6CM) cm MV E-F(>70mm/sec) 4.4 cm LV systole 1.0 cm LVOT Diameter 1.3 cm MV exc.(>10mm) 1.3 cm Est.ejection fraction (50-75%) % Pericardial Effusion N DOPPLER: LVIT cm/sec A 32.0 cm/sec E 139 cm/sec LA cm/sec RVSP 64 mmHg LVOT 119 cm/sec AOP1/2T m/s Asc. Ao 357 cm/sec RVOT 68 cm/sec RA cm/sec PA 102 cm/sec AV Gradient Peak 50.99mmHg AV Mean 35.13mmHg AV Area 1.0 cm MV Gradient Peak 12.17mmHg MV Mean 2.60 mmHg MV Area cm COMMENTS: Competitive Shopper: Yoshi RAY Guest Laundry Attendant: 2 Dr. Platt TAPE# PACS DATE OF SERVICE: 08/31/2017 FINDINGS: 1. Left ventricular chamber size is within normal limits. Left ventricular systolic function is [id number] reduced. Overall ejection fraction of 35%-40%. 2. Left atrium is enlarged at 4.2 cm. Right atrium and right ventricle chamber sizes are as well mildly dilated. 3. Valvular structures: Aortic valve demonstrates moderate calcific aortic stenosis. Valve area calculates to 1.0 cm-squared is a gradient of 51-mm across ECHOCARDIOGRAM REPORT [id number] JULIO BRAMBILA the valve. The remaining valvular structures have normal structure and motion. 4. Doppler interrogation elsewise reveals severe mitral regurgitation, [id number] tricuspid regurgitation, no other valvular insufficiency or stenosis. Pulmonary systolic pressure is elevated, estimated at 64 mmHg. 5. No evidence of pericardial effusion or left ventricular thrombus. TRANSINT:[id number] Voice Confirmation ID: [id number] DOCUMENT ID: [id number] JULY LOWE MD at 1309 CC: [id number] DICTATION DATE: 08/31/17 1157 TRANSIT OPERATIONS SUPERVISOR: 08/31/17 1230 ADM IN [facility] [address] [id number]
--- NOTE | 2017-09-01 14:24 | NUR ---
WENT IN TO CHECK ON PATIENT. TELLS ME HER BOYFRIEND JUST LEFT HER HERE, AND THAT SHE HAS TO HAVE SURGERY. TOLD HER SHE HAS ALREADY HAD HER PROCEDURE AND HAS NO OTHER SURGERIES TO HAVE DONE. THEN TELLS ME SHE IS READY TO GO HOME. TOLD HER SHE WAS IN THE HOSPITAL. SHE TOLD ME SHE WASN'T. SHOWED HER MY WORK BADGE TO SHOW HER SHE WAS IN THE HOSPITAL. STILL DOES NOT BELIEVE SHE IS IN THE HOSPITAL. TOLD ME SHE NEEDS TO GO HOME. EXPLAINED SHE STILL HAS TO HAVE DIALYSIS IN JUST A LITTLE WHILE. TELLS ME SHE ALREADY HAD DIALYSIS THIS MORNING.
--- NOTE | 2017-09-01 14:41 | NUR ---
SOLUMEDROL GIVEN. PT REPOSITIONED. CALL LIGHT IN REACH.
--- NOTE | 2017-09-01 16:03 | NUR ---
Dialysis Coordinator: ELISEO Tellez Dialysis Mon/Mon/Mon @ 12:00pm. DENISE HARDY.
--- NOTE | 2017-09-01 16:25 | NUR ---
DIALYSIS NURSE AT BEDSIDE FOR TREATMENT
--- NOTE | 2017-09-01 18:20 | NUR ---
DIALYSIS STILL IN PROCESS. NO DISTRESS NOTED. BLOOD SAMPLE OBTAINED FOR GLUCOSE CHECK. RESULTS OF 131. NO INSULIN NEEDED.
--- NOTE | 2017-09-01 19:30 | NUR ---
SHIFT ASSESSMENT COMPLETED. SEE ASSESSMENT FLOWSHEET. HD IN PROGRESS.
--- NOTE | 2017-09-01 19:50 | NUR ---
HD COMPLETED-3 LITERS REMOVED PER HD NURSE REPORT. WILL MONITOR.
--- NOTE | 2017-09-01 21:00 | NUR ---
2100 MEDS GIVEN. NAMENDA GIVEN WITH MULTIPLE ATTEMPTS TO GET HER TO USE THE STRAW TO THE NEPRO DRINK APPROPRIATELY. ABLE TO GET IT DOWN ONCE USING STRAW CORRECTLY. CONFUSED. REORIENTED TO PLACE, TIME AND SITUATION. WILL MONITOR.
--- NOTE | 2017-09-01 22:30 | NUR ---
COMPLETE BED BATH AND LINEN CHANGE COMPLETED. NO URINE OR BM NOTED ON SHEETS. HOLLERS OUT IN PAIN WHEN TOUCHED AT TIMES. REPOSITIONED FOR COMFORT. RT AC IV LEAKING SEROSANGUINOUS FLUID. WILL BREAK DOWN IV SITE AND ASSESS.
--- NOTE | 2017-09-01 22:45 | NUR ---
RT AC PIV LEAKING WHEN FLUSHED. ATTEMPTED TO REPOSITION AND NOT ABLE TO GET IV SITE TO WORK AND PT REPORTED "OUCH" WHEN FLUSHING. D/C'ED CATHETER, TIP INTACT. MULTIPLE ATTEMPTS X3 TO STICK PERIPHERALLY WITHOUT SUCCESS. WILL MONITOR.
[2017-09-02] VITALS (13 sets, daily range): BP systolic 107–139; BP diastolic 60–101
--- NOTE | 2017-09-02 | NUR ---
REASSESSMENT COMPLETED. SEE ASSESSMENT FLOWSHEET. REPOSITIONED TO LEFT SIDE PER REQUEST AND COVERS REMOVED DUE TO HER BEING "HOT". NO ACUTE CHANGES NOTED. WILL MONITOR.
--- NOTE | 2017-09-02 02:00 | NUR ---
EYES CLOSED. NO ACUTE DISTRESS NOTED. WILL MONITOR.
--- NOTE | 2017-09-02 03:50 | NUR ---
TREVER WITH PHLEBO IN AT BEDSIDE TO DRAW AM LABS. REASSESSMENT COMPLETED. SEE ASSESSMENT FLOWSHEET. TEMP ASSESSED, AFEBRILE. NO NEW ACUTE CHANGES. REORIENTED.
--- NOTE | 2017-09-02 04:10 | NUR ---
TURNED AND REPOSITIONED FOR COMFORT AND PRESSURE RELIEF. HOWARD OUTLOUD "OOOH" WHEN TOUCHED YET DENIES PAIN. WILL MONITOR.
[2017-09-02 05:29] LABS: BASOPHILS 0 % (0-2); EOSINOPHILS 0 % (0-7); HEMATOCRIT 29.5 % (36.0-48.0); HEMOGLOBIN 9.8 g/dL (12-16); IMMATURE GRANULOCYTES 0.6 % (0-5); LYMPHOCYTES 7.1 % (15-50); MCH 32.1 pg (26.0-34.0); MCHC 33.2 g/dL (31.0-37.0); MEAN PLATELET VOLUME 11.1 fL (7.4-10.4); MONOCYTES 6.4 % (2-11); NEUTROPHILS 85.9 % (40-80); RBC 3.05 10x6/uL (4.00-5.40); RDW 19.3 % (11.5-14.5)
[2017-09-02 05:30] LABS: MCV 96.7 fL (80.0-100.0); PLATELET COUNT 92 10x3/uL (130-400); WBC 10.4 10x3/uL (4.8-10.8)
[2017-09-02 05:37] LABS: PLATELET ESTIMATE DECREASED
--- NOTE | 2017-09-02 05:50 | NUR ---
DR. FITZGERALD PAGED TO INFORM OF NOT ABLE TO GET NEW PIV STARTED. AWAITING RETURN CALL. WILL MONITOR.
[2017-09-02 05:51] LABS: ANION GAP 23.3 mmol/L (8-16); CALCIUM 10.2 mg/dL (8.5-10.1); CARBON DIOXIDE 20.9 mmol/L (21.0-32.0)
[2017-09-02 05:52] LABS: CREATININE - SERUM 4.3 mg/dL (0.6-1.3); POTASSIUM - SERUM 4.2 mmol/L (3.5-5.1)
--- NOTE | 2017-09-02 06:30 | NUR ---
INSULIN GIVEN PER PROTOCOL FOR SUGAR-209.
--- NOTE | 2017-09-02 08:44 | OP ---
PATIENT NAME: LIMA SRIVASTAVA MEDICAL RECORD: [id number] :43 LOCATION:[facility] D.2310 ADMISSION DATE:08/30/17 SURGEON: OUSMANE SIM MD DATE OF OPERATION: 08/31/2017 She is operated and she is dictated today on 08/31/2017. She is an inpatient. PREOPERATIVE DIAGNOSIS: Mechanical complication of tunneled hemodialysis catheter along with end-stage renal disease and dependence on hemodialysis; N18.6, Z99.2, and T82.49XA. OPERATION PERFORMED: Replacement of left internal jugular tunneled dialysis catheter replacing a 23 cm HemoSplit catheter with a 23 cm Arrow vector flow tunneled dialysis catheter under fluoroscopy including inferior vena cavogram for confirmation of appropriate placement of catheter. SURGEON: Ousmane Sim MD REFERRING PHYSICIAN: Olivier Mc MD ANESTHESIA: TIVA per EDUCATION SUPERVISOR. PREOPERATIVE NOTE: Ms. Lima Srivastava is a 72-year-old [place] She has end-stage renal disease and is on chronic hemodialysis and catheter dependent. She has gone without dialysis this week as her left internal jugular HemoSplit catheter has been nonfunctional. She was admitted to the hospital here yesterday after being seen briefly at [facility] and considered too ill to be a candidate for catheter exchange procedure to be done as an outpatient there. She is brought to the operating room today for catheter replacement and then she should be able to have dialysis here this evening or tomorrow. With the patient under TIVA in supine position, prepped and draped in a sterile manner. Skin and subcutaneous tissues around the catheter entry site on the left and the subcutaneous tissues along the course of the subcutaneous tunnel were infiltrated with 1% lidocaine. The catheter cuff was easily freed from the surrounding tissues and the catheter then was loose within the tunnel. Fluoroscopy demonstrated that the catheter tip was barely in the superior vena cava, which probably with this malpositioning accounts for catheter's poor function. The catheter was removed over a 0.035 angled Glidewire and a new 23-cm long arrow vector flow nonsplit type tunneled catheter was inserted over the guidewire through the same entry site and subcutaneous tunnel and vascular path. This catheter easily passed down into the superior vena cava, right atrium, and with some manipulation of the guidewire, was placed deeply into the atrium actually into the inferior vena cava. This position was confirmed by contrast injection and performance of the inferior vena cavogram. The Dacron felt cuff was placed as deeply with the tunnel as possible, which is about 2 cm above the level of the skin entry site. The wounds were all irrigated with Ancef and gentamicin solution. The entry site was snugged up about the catheter with a single inverted subcuticular 3-0 Vicryl suture. The entry site was then sealed with glue and dressed with a Biopatch. The catheter was sutured to the skin near the entry site with 2-0 Prolene and a special central venous line dressing was applied as per protocol. The patient at that point was awakened and taken to the recovery room. Blood loss during the procedure was about 20 cc and unreplaced. All sponges, instruments and needles were accounted for. No OPERATIVE REPORT [id number] LIMA SRIVASTAVA drain was used and no surgical specimen was submitted for histopathology. The patient was given 1 gram of Ancef at the beginning of the procedure and the old catheter was not sent for culture. TRANSINT:[id number] Voice Confirmation ID: [id number] DOCUMENT ID: [id number] CC: OUSMANE Sierra MD at 0844 CC: OLIVIER MC MD [id number] DICTATION DATE: 08/31/17 173 CHRO: 08/31/17 3979 ADM IN [facility] [address] [place] [address]
--- NOTE | 2017-09-02 10:34 | NUR ---
PATIENT AWAKES SLOWLY TO VERBAL STIMULI. DOES NOT LIKE TO BE TOUCH SAYS SHE MOANS THEN DENIES PAIN. REFUSED PHYSICAL THERAPY WOULD NOT LET THEM TOUCH HER. FEED BREAKFAST ATE 2 BITES OF EGGS AND DRANK SOME JUICE, DID NOT WANT ANY MORE. LEFT SUBCLAVIAN AREA HEMISPLIT DIALYSIS CATHETER DRESSING INTACT AND SALINE LOCKED. ABD SOFT WITH BOWEL SOUNDS. LUNGS CLEAR DEEP AND REGULAR. NO EDEMA NOTED IN EXTREMITITES. MONITOR SR WITH 1ST DEGREE BLOCK. ORDERS RECEIVED TO TRANSFER TO FLOOR.
--- NOTE | 2017-09-02 11:15 | NUR ---
REPORT CALLED TO Justin. TRANSFERED PER BED TO ROOM 8126. PATIENT TOLERATED WELL
--- NOTE | 2017-09-02 11:20 | NUR ---
PATIENT TO ROOM FROM ICU, PATIENT IS ALERT BUT CONFUSED AT THIS TIME. PATIENT HAS A HISTORY OF DEMENTIA. INFORMED PATIENT SHE WAS IN THE HOSPITAL. PATIENT HAS A L SUBCLAVIN HEMOSPLIT CATHETER. NAD NOTED AT THIS TIME. PATIENT DENIES ANY PAIN. BED IS LOW AND LOCKED, CALL LIGHT IN REACH. WILL CONT TO MONITOR PATIENT. CPOC
--- NOTE | 2017-09-02 11:45 | NUR ---
PATIENT FSBS 233, 4 UNITS OF HUMALOG GIVEN.
--- NOTE | 2017-09-02 14:25 | NUR ---
PATIENT RESTING AT THIS TIME, AROUSES TO VOICE. DENIES ANY NEEDS. CPOC
--- NOTE | 2017-09-02 23:58 | NUR ---
PT RESTING WELL WITHOUT C/O OR DISTRESS NOTED. FEW NEEDS VOICED. CALL LIGHT WITHIN REACH.
[2017-09-03 05:13] LABS: BASOPHILS 0.1 % (0-2); EOSINOPHILS 0 % (0-7); HEMATOCRIT 31.2 % (36.0-48.0); HEMOGLOBIN 10.4 g/dL (12-16); IMMATURE GRANULOCYTES 1.2 % (0-5); LYMPHOCYTES 8.5 % (15-50); MCH 33.1 pg (26.0-34.0); MCHC 33.3 g/dL (31.0-37.0); MEAN PLATELET VOLUME 10.8 fL (7.4-10.4); NEUTROPHILS 83.2 % (40-80); RBC 3.14 10x6/uL (4.00-5.40); RDW 19.1 % (11.5-14.5); WBC 11.2 10x3/uL (4.8-10.8)
[2017-09-03 05:14] LABS: MCV 99.4 fL (80.0-100.0); PLATELET COUNT 112 10x3/uL (130-400)
[2017-09-03 05:15] LABS: ANION GAP 25.8 mmol/L (8-16); CALCIUM 9.4 mg/dL (8.5-10.1); CARBON DIOXIDE 19.6 mmol/L (21.0-32.0); PHOSPHOROUS 7.4 mg/dL (2.5-4.9); POTASSIUM - SERUM 4.4 mmol/L (3.5-5.1)
[2017-09-03 05:16] LABS: CREATININE - SERUM 6.2 mg/dL (0.6-1.3)
[2017-09-03 06:33] VITALS: BP 141/72
--- NOTE | 2017-09-03 08:15 | NUR ---
PT RESTING IN BED WITH EYES OPEN CALL LIGHT IN REACH WILL MONITER PT REFUSING BREAKFAST
[2017-09-03 09:09] VITALS: BP 136/60
--- NOTE | 2017-09-03 11:30 | NUR ---
PT RETURNED FROM CT CALL LIGHT IN REACH WILL MONITER
[2017-09-03 12:42] VITALS: BP 164/77
--- NOTE | 2017-09-03 14:46 | NUR ---
PT IN BED AT THIS TIME AND AWAKE. PT STATES THAT SHE WANTS "HELP" BUT IS UNABLE TO TELL ME WHAT I CAN HELP HER WITH. PT KEEPS REPEATING "HELP ME". TRIED SEVERAL TIMES TO SEE HOW I CAN HELP HER BUT SHE WILL NOT SAY. BED AT LOWEST POSITION. CALL STEWART IN USE/REACH. SIDE RAILS UP X2. WILL CONTINUE TO MONITOR
[2017-09-03 16:39] VITALS: BP 113/47
--- NOTE | 2017-09-03 18:00 | NUR ---
PT ASSISTED WITH EATING PT ATE 10 PERCENT APPETITE POOR PT STATES SHE IS NOT HUNGRY CALL LIGHT IN REACH FESTUS ROSAS
[2017-09-03 19:00] VITALS: BP 151/123
--- NOTE | 2017-09-03 19:44 | NUR ---
PT IN BED ASLEEP. WOKE TO VERBAL STIMULI AND INSTANTLY BEGAN TO WHINE. SAYING HELP HELP HELP. REPOSITIONED PT AND DID BEST TO MAKE COMFORTABLE. BED LOW AND CALL LIGHT IN REACH. WILL CPOC
--- NOTE | 2017-09-03 22:26 | NUR ---
PT VOMITED MEDS SOON I GAVE THEM TO HER. WASTED MEDS AND PULLED NEW ONES. CLEANED PT UP AND REPOSITIONED HER FOR COMFORT. PT IS NOT ORIENTED, PT BED LOW AND CALL LIGHT IN REACH. WILL CPOC
--- NOTE | 2017-09-03 23:37 | NUR ---
PT FSBS IS 160. PT NEEDS 2 UNITS OF INSULIN. PT C/O STOMACH. PT DID HAVE A MODERATE AMOUNT OF BROWN EMESIS. PT DID NOT HAVE A TEMP. PT IS C/O BEING HOT. AND IS RESTLESS. CRYING OUT HELP ME HELP ME. .GAVE PT 2 TABS OF NORCO 5/325 AT 2203. WILL GIVE ANOTHER DOSE AT 0403 IF PT WANTS IT. MAKING PT AN ICE PACK TO SEE IF THAT HELPS WITH HER STOMACH. PT IS NOT ALERT ENOUGH TO TELL ME WHEN SHE HAD A BM LAST. WILL LOOK THROUGH NOTES AND RECORDS TO SEE IF THAT IS CAUSING THE STOMACH PAIN. A URINE CULTURE IS NEEDED. PT IS END STAGE RENAL. WILL TRY TO OBTAIN VIA IN AND OUT CATH. PT REPOSITIONED. NO S/S OF DISTRESS. WILL CPOC
[2017-09-04] VITALS: BP 124/65; BP 98/33
--- NOTE | 2017-09-04 02:41 | NUR ---
PT CALLING OUT FOR HELP AND CRYING OUT IN PAIN. REPOSITONED ICE PACK AND REPOSITONED PT. TALKED WITH PT ABOUT WHEN SHE CAN HAVE MORE PAIN MEDS. PT STILL CRYING OUT IN PAIN. STATING IT IS NOT WORKING WHY IS SHE IN SO MUCH PAIN. WILL GIVE PT HER PAIN MED SOON I CAN. PAIN MED CAN BE GIVEN AT 0403. PT BED LOW AND CALL LIGHT IN REACH
--- NOTE | 2017-09-04 03:05 | NUR ---
SPOKE WITH LINDSEY ABOUT PT CRYING OUT IN PAIN. WE SET PT UP HOB 45. GAVE HER A COLD DRINK OF WATER AND PT HAS BEEN QUIET FOR ABOUT 5 MINS. PT MOUTH IS DRY. TOUNGE IS HARD. PT STATING THAT MOUTH AND GUMS HURT. ORAL CARE DONE. LINDSEY CAME AND SPOKE WITH PT, HARD TO PINPOINT EXACT AREA OF PAIN. PT CONFUSED. BED LOW AND CALL LIGHT IN REACH. SCD'S ON BILATERAL LOWER EXTREM. WILL CPOC
--- NOTE | 2017-09-04 04:12 | NUR ---
OFFERED PT A PAIN PILL AND SHE STATED NOT RIGHT NOW. WILL CONTINUE TO MONITOR THE PT PAIN. PT HAS NO S/S OF DISTRESS. LAB IN ROOM. PT BED LOW AND CALL LIGHT IN REACH. WILL CPOC
--- NOTE | 2017-09-04 05:06 | NUR ---
BLOOD DRAWN FROM BLUE PORT. IT HOLDS 2.1ML OF HEPARIN. PULLED HEPARIN OUT THAN FLUSHED WITH 10ML. PULLED 10ML FOR WASTE. PULLED 20ML OF BLOOD FOR LAB THAN FLUSHED WITH 10ML THAN PUT 2.1ML OF HEPARIN. CLEANED CAP AND PUT A SWAB CAP ON. PT C/O PAIN AND CALLING FOR HELP. 2 TABS OF NORCO GIVEN. TRYED TO DO AN IN AND OUT CATH FOR URINE CULTURE 2 TIMES AND BOTH TIMES PT REFUSED, FREAKED OUT AND SAID JUST LET ME SLEEP. PT REPOSITIONED. DENIES ANY NEEDS AT THIS TIME. NO S/S OF DISTRESS, WILL CPOC
[2017-09-04 05:13] LABS: BASOPHILS 0.1 % (0-2); EOSINOPHILS 0.4 % (0-7); HEMATOCRIT 29.5 % (36.0-48.0); HEMOGLOBIN 9.6 g/dL (12-16); LYMPHOCYTES 7.8 % (15-50); MCHC 32.5 g/dL (31.0-37.0); MCV 98.3 fL (80.0-100.0); MEAN PLATELET VOLUME 10.8 fL (7.4-10.4); MONOCYTES 6.8 % (2-11); NEUTROPHILS 83.9 % (40-80); PLATELET COUNT 99 10x3/uL (130-400); RDW 18.9 % (11.5-14.5); WBC 10.8 10x3/uL (4.8-10.8)
[2017-09-04 05:25] LABS: ANION GAP 21.7 mmol/L (8-16); CALCIUM 8.9 mg/dL (8.5-10.1); CARBON DIOXIDE 22.5 mmol/L (21.0-32.0); CREATININE - SERUM 7.7 mg/dL (0.6-1.3); PHOSPHOROUS 6.5 mg/dL (2.5-4.9); POTASSIUM - SERUM 4.2 mmol/L (3.5-5.1)
--- NOTE | 2017-09-04 06:24 | NUR ---
PT BLOOD SUGAR IS 218. 4 UNITS PER SLIDING SCALE. PT IS SLEEPING SOUNDLY AT THE MOMENT. RESPIRATIONS EVEN AND UNLABORED. SCDS ON BILATERAL. BED LOW AND CALL LIGHT IN REACH. WILL CPOC
--- NOTE | 2017-09-04 07:20 | NUR ---
REPORT RECEIVED. PT RESTING QUIETLY, REPORTS FEELING "OKAY" THIS MORNING. PT IS ORIENTED TO PERSON AND TIME ONLY. RR EVEN AND UNLABORED. WILL CTM.
[2017-09-04 08:00] VITALS: BP 130/71
--- NOTE | 2017-09-04 10:57 | NUR ---
Nutrition Follow Up: Chart reviewed. Noted pt oriented to person and time only. Per MD note pt family may need to consider hospice. Interview deferred at this time. Pt is eating 9% meal avg on a renal ADA diet. She is receiving Nepro. Wt loss since admit. +BM 08/31/17. Labs and meds reviewed. Rec liberalizing diet to encourage po intake. RD following.
[2017-09-04 12:00] VITALS: BP 121/64
--- NOTE | 2017-09-04 12:53 | NUR ---
FAMILY AT [facility]ES STATION REQUESTING INFO ABOUT PT. GAVE UPDATE ON PT CONDITION AND FAMILY IS REQUESTING INFORMATION REGARDING POSSIBLE HOSPICE. THEY REPORT THAT SOMEONE CALLED REGARDING POSSIBLE HOSPICE. GAVE UPDATE ON PT AND READ MD NOTES TO FAMILY PER REQUEST.
--- NOTE | 2017-09-04 13:00 | NUR ---
RENAL ELECTRONIC SECURITY TECHNICIAN MALGORZATA GARCIA SPOKE TO FAMILY OVER TELEPHONE REGARDING PT STATUS AND HOSPICE.
--- NOTE | 2017-09-04 15:19 | NUR ---
PTS FAMILY APPROACHED DESK REGARDING PTS CODE STATUS. OLDEST CHILD (JORDIN CASTELAN) WISHES TO MAKE PT DNR. I ASKED PT IF SHE WANTED TO BE ON LIFE SUPPORT OR HAVE CHEST COMPRESSIONS TO WHICH SHE SAID "NO, I WOULD JUST BE SUFFERING MORE." PT IS CONFUSED AT TIMES. WILL GET MD TO SIGN DNR ORDER.
[2017-09-04 16:00] VITALS: BP 101/56
--- NOTE | 2017-09-04 17:00 | NUR ---
PT NEEDED IN DIALYSIS. INSTILLED HEPARIN 2.1 MLS INTO HEMOSPLIT. WILL TRANSFER TO DIALYSIS.
--- NOTE | 2017-09-04 17:30 | NUR ---
PT TRANSFERRED TO DIALYSIS X2 ASSIST VIA BED.
--- NOTE | 2017-09-04 18:23 | NUR ---
PT IN DIALYSIS, WILL GIVE REPORT ON PT CONDITION FOR THE DAY./
--- NOTE | 2017-09-04 19:20 | NUR ---
PT CURRENTLY AT DIALYSIS AND NOT IN ROOM.
--- NOTE | 2017-09-04 21:10 | NUR ---
PT RETURNED TO FLOOR FROM DIALYSIS BY BED X2. BREATHING EVEN AND UNLABORED. BED IN LOW POSITION. CALL LIGHT WITHIN REACH.
--- NOTE | 2017-09-04 21:20 | NUR ---
PT CRYING OUT HELP. STATED SHE IS IN PAIN. REPOSITIONED PT AND GAVE HER PAIN MEDICATION. BED IN LOW POSITION, CALL LIGHT WITHIN REACH.
--- NOTE | 2017-09-05 | NUR ---
PT SCREAMING. ASKED HER IF SHE IS IN PAIN SHE SAID NO. REPOSITIONED HER. STATES SHE DOESN'T KNOW WHY SHES SCREAMING BUT THAT SHE JUST WANTS TO. BED IN LOW POSITION, CALL LIGHT WITHIN REACH.
[2017-09-05 00:37] VITALS: BP 128/90
--- NOTE | 2017-09-05 00:43 | NUR ---
PT SCREAMING OUT. DENIES PAIN. STATES SHE JUST WANTS TO SCREAM. STATES SHE "WANTS TO " AND THAT "GOD IS KILLING HER." TRIED TO REPOSITION AND DO RELAXATION TECHNIQUES BUT PT CONTINUOUSLY STATES SHE "DOES NOT CARE." WILL CTM. BED IN LOW POSITION, CALL LIGHT WITHIN REACH.
--- NOTE | 2017-09-05 01:37 | NUR ---
PT CONTINUING TO SCREAM OUT AND SAY HELP ME. ASKED HER WHAT SHE NEEDED HELP WITH AND SHE SAYS NOTHING. SAYS SHE IS NOT IN PAIN. WILL CTM. BED IN LOW POSITION, CALL LIGHT WITHIN REACH.
--- NOTE | 2017-09-05 02:16 | NUR ---
PT GIVEN BED BATH TO HELP RELAX. PT CONTINUING TO SCREAM AFTER BATH GIVEN. NOW STATES THAT SHE IS IN PAIN. INFORMED PT OF WHEN SHE CAN HAVE ANOTHER PAIN PILL. PT STATED UNDERSTANDING BUT STATES SHE STILL WANTS TO SCREAM. WILL CTM. BED IN LOW POSITION, CALL LIGHT WITHIN REACH.
[2017-09-05 04:38] VITALS: BP 146/58
[2017-09-05 04:53] LABS: BASOPHILS 0.2 % (0-2); EOSINOPHILS 1.2 % (0-7); HEMATOCRIT 30.2 % (36.0-48.0); IMMATURE GRANULOCYTES 1.4 % (0-5); LYMPHOCYTES 8.6 % (15-50); MCH 32.3 pg (26.0-34.0); MCHC 33.1 g/dL (31.0-37.0); MCV 97.4 fL (80.0-100.0); MEAN PLATELET VOLUME 11.6 fL (7.4-10.4); MONOCYTES 9.6 % (2-11); PLATELET COUNT 80 10x3/uL (130-400); RDW 18.7 % (11.5-14.5)
--- NOTE | 2017-09-05 04:56 | NUR ---
IN AND OUT CATH COMPLETED. 20 ML DARK YELLOW URINE COLLECTED. SENT TO LAB. MOUTH CARE DONE. BED IN LOW POSITION, CALL LIGHT WITHIN REACH.
[2017-09-05 05:21] LABS: ANION GAP 19.4 mmol/L (8-16); CALCIUM 8.5 mg/dL (8.5-10.1); CARBON DIOXIDE 24.4 mmol/L (21.0-32.0); POTASSIUM - SERUM 3.8 mmol/L (3.5-5.1)
[2017-09-05 05:28] LABS: CREATININE - SERUM 4.7 mg/dL (0.6-1.3); PHOSPHOROUS 4.4 mg/dL (2.5-4.9)
--- NOTE | 2017-09-05 05:59 | NUR ---
MOUTH CARE PERFORMED ON PT AGAIN PER PT REQUEST. PT STILL SCREAMING. ASKED PT IF SHE WAS IN PAIN AND PT SAID NO. SAID SHE "JUST DOESNT CARE" AND WANTS TO SCREAM. WILL CTM. BED IN LOW POSITION, CALL LIGHT WITHIN REACH.
--- NOTE | 2017-09-05 06:40 | NUR ---
DNR ORDER SIGNED BY DR. MC AND PUT IN CHART.
--- NOTE | 2017-09-05 07:00 | NUR ---
REPORT RECEIVED FROM OFF GOING NURSE. SEE FLOW SHEET FOR ASSESSMENT. PT IN ROOM SCREAMING. WHENEVER WALKED INTO ROOM, I ASKED THE PT IF SHE WAS HURTING AND SHE SAID NO. WHENEVER ASKED WHY SHE WAS SCREAMING, SHE STATED "I DONT KNOW, I JUST LIKE TO SCREAM.". DENEIS A PAIN AT THIS TIME. PT BREATHING NORMALLY AND UNLABOE. WAS INFOMRED IN REPORT THAT PT WAS UP ALL NIGHT SCREAMING. CALL LIGHT IN REACH. WILL CONT POC.
[2017-09-05 11:17] LABS: HEPATITIS C ANTIBODY <0.1 (0.0-0.9)
[2017-09-05 11:47] VITALS: BP 112/64
--- NOTE | 2017-09-05 13:45 | NUR ---
PT SCREAMING AND STATING THAT SHE IS HURTING. WHENEVER ASKED WHERE SHE IS HURTING SHE STATES "I DONT KNOW IM JUST HURTING". REPOSISTIONING UNSUCCESSEFUL. TODD FERNÁNDEZ GIVEN.
--- NOTE | 2017-09-05 14:54 | NUR ---
PT DENIES PAIN AT THIS TIME BUT IS STILL SCREAMING. WHENEVER ASKED WHAT THE MATTER IS, SHE JUST MUMBLES AND YELLS "PLEASE DONT LEAVE ME" PRN JENNIFER CHANEL.
--- NOTE | 2017-09-05 17:52 | NUR ---
PT RESTING IN BED WITH EYES CLOSED WITH EVEN UNLABORED RESPIRATION. CALL LIGHT IN REACH. WILL CONT POC
--- NOTE | 2017-09-05 19:33 | NUR ---
PT LYING IN BED, CONFUSED, O2 SAT IS ANYWHERE FROM 64-73, O2 PLACED @ 2 LPM. PTS HANDS ARE COLD TO TOUCH, LEFT HAND SWOLLEN, HOWEVER, PULSE OX ON RIGHT SECOND TOE DID READ 99%, BILATERAL FEET ARE WARM TO TOUCH WITH GOOD PULSES. WILL KEEP O2 ON FOR NOW. PT IS A MOUTH BREATHER, YELLS OUT IN CONFUSION AND C/O PAIN, BUT CANNOT TELL ME WHERE HER PAIN IS. WILL REPLACE TELEMETRY AND CONTINUE TO MONITOR PT CLOSELY. BED LOW, CALL LIGHT IN REACH, SIDE RAILS X 2, HOB [address]ES[address]SO [address] BRAD MAT UNDER PT FOR SAFETY.
[2017-09-05 20:46] VITALS: BP 119/60
--- NOTE | 2017-09-05 22:47 | NUR ---
PT RESTING COMFORTABLY, WAS YELLING OUT EARLIER IN SHIFT, REORIENTED PT TO PLACE, TIME, AND SITUATION, AND ASKED PT TO PLEASE QUIT YELLING, EXPLAINED TO PT THAT SHE IS DISRUPTIVE TO OTHER PT'S AND THEY ARE TRYING TO REST. PT HAS BEEN CALM SINCE THEN. CURRENTLY, PT IS LYING ON HER LEFT SIDE, EYES CLOSED, RESPIRATIONS EVEN AND UNLABORED. I FEEL THE GEODON GIVEN FROM DAY SHIFT IS EFFECTIVE WITH PTS CONFUSION AND AGITATION. WILL CONTINUE TO MONITOR CLOSELY. BED LOW, CALL LIGHT IN REACH, SIDE RAILS X 2, HOB 20 DEGREES.
[2017-09-06 00:46] VITALS: BP 112/48
--- NOTE | 2017-09-06 02:08 | NUR ---
PT BEGAN YELLING OUT, C/O PAIN, DIFFICULT TO REORIENT. I DID GIVE HER PRN NORCO, IN WHICH PT DEMONSTRATED GREAT DIFFICULTY IN SWALLOWING, BECAME AGITATED, AND THREW BOTH OF THE PILLS, ONE AT A TIME, ON TO HER BED. I ORIGINALLY ATTEMPTED TO GIVE PT ONE PILL AT A TIME WITH APPLESAUCE, WHICH THREW THE PT INTO COMPLETE HYSTERICS, STATING "THE APPLE WENT UP THROUGH HER MOUTH", AND BEGAN SCREAMING. PT SPIT THE PILL OUT AND THREW IT. I THEN GAVE HER THE PILL AGAIN, THIS TIME WITH WATER. PT STILL DEMONSTRATED GREAT DIFFICULTY SWALLOWING BUT EVENTUALLY DID GET THE PILL DOWN. I EXPLAINED TO PT THAT SHE COULD NOT HOLD THE PILL AT THE TIP OF HER TONGUE, THAT SHE NEEDED TO SWALLOW. PT HAD TO BE COACHED ON SUCKING THROUGH A STRAW. THE SAME HAPPENED WITH THE SECOND PILL, BUT SHE SWALLOWED IT WELL WITH COACHING. CURRENTLY PT IS RESTING QUIETLY. SHE JUST RECEIVED A BED BATH, GOWN CHANE, AND LINEN CHANGE. O2 REMAINS ON, HOWEVER, PT DOES PULL IT OFF FREQUENTLY. WILL CONTINUE TO MONITOR CLOSELY.
[2017-09-06 04:25] VITALS: BP 122/60
--- NOTE | 2017-09-06 07:00 | NUR ---
REPORT RECEVIED FROM OFF GOING NURSE. SEE FLOW SHEET FOR ASSESMENT. PT CONFUESD AND YELLS INTERMITTEDLY. DENIES PAIN BUT SCREAMS "HELP ME, HELP ME" WHENEVER IN ROOM AND ASKED WHATS WRONG, PT STATES "NOTHING". WINE STEWARD/STEWARDESS HELPED PT EAT AND PT SPIT FOOD OUT. NOW RESTING WITH EYES CLOSED WITH NORMAL AND UNLABORED RESPIRATIONS WITH NO S/SX OF DISTRESS/DISCOMFORT NOTED. CALL LIGHT IN REACH. WILL CONT POC.
[2017-09-06 08:04] VITALS: BP 134/65
--- NOTE | 2017-09-06 12:00 | NUR ---
PT RESTING WITH EYES CLOSED WITH 0 S/SX OF DISTRESS/DISCOMFORT NOTED. ABLE TO ARROUSE WITH VERBALY STIMULI. CALL LIGHT IN REACH. WILL CONT POC
--- NOTE | 2017-09-06 14:45 | NUR ---
PT TRANSPORTED DOWN STAIRS TO DIALYSIS VIA BED. PT RESTING WITH EYES CLOSED WITH 0 S/SX OF DISTRESS/DISCOMFORT NOTED.
--- NOTE | 2017-09-06 15:34 | NUR ---
WAS NOTIFIED BY THE MICROBIOLOGY TECHNOLOGIST THAT THE PT HAD A 13 RUN OF V TACH. PT IS RECEIVING DIALYSIS. DYALISIS NURSE CALLED IMMEDIATELY TO INFORM THE OF CARDIAC RYTHEM. BP 114/97 AND PULSE 91 VERIFIED VIA DIALYSIS NURSE. SHE CALLED DR DRAPER WITH NEW DIALYSIS ORDERS. NOW SINUS RYTHUM ON THE MONITOR.
[2017-09-06 19:00] VITALS: BP 118/59
--- NOTE | 2017-09-06 20:39 | NUR ---
ADMINISTERED GEODON 10 MG IM INJECTION PER ORDER. PT WAS VERY AGITATED AND YELLING.
--- NOTE | 2017-09-06 21:31 | NUR ---
PT IN BED RESTING QUIETLY. NO S/S DISTRESS OR AGITATION. BED IN LOW POSITION, CALL LIGHT WITHIN REACH.
--- NOTE | 2017-09-06 23:24 | NUR ---
PT YELLING AND STATED SHE WAS IN PAIN. GAVE HER HER PRESCRIBED PAIN MEDICATION. PT STATED HER MOUTH AND THROAT WERE HURTING. OFFERED HER MOUTH CARE BUT PT REFUSED MULTIPLE TIMES. WILL CTM. BED IN LOW POSITION.
[2017-09-07] VITALS: BP 125/63
--- NOTE | 2017-09-07 00:10 | NUR ---
FSBS 130. NO INSULIN GIVEN PER SLIDING SCALE. MOUTH CARE PERFORMED. BED IN LOW POSITION, CALL LIGHT WITHIN REACH.
--- NOTE | 2017-09-07 01:32 | NUR ---
ADMINISTERED GEODON 10 MG PER ORDER. PT WAS AGITATED AND YELLING. WILL CTM. BED IN LOW POSITION.
[2017-09-07 04:00] VITALS: BP 104/41
--- NOTE | 2017-09-07 05:52 | NUR ---
FSBS 95. NO INSULIN GIVEN PER SLIDING SCALE. PT IN BED RESTING QUIETLY. OFFERED SIPS OF WATER. BED IN LOW POSITION.
--- NOTE | 2017-09-07 07:47 | NUR ---
AM ROUNDS - PT IS AWAKE IN BED AT THIS TIME. YELLOW BAND ON. 1ST LEST OVERLAY. MONITOR SHOWING SR, HR 65. PT ON 2L O2 VIA NS. LEFT SUBCLAV HEMOSPLIT. BED AT LOWEST POSITION. CALL STEWART IN USE/REACH. SIDE RAILS UP X2. WILL CONINTUE TO MONITOR
[2017-09-07 08:00] VITALS: BP 106/45
--- NOTE | 2017-09-07 11:19 | NUR ---
Nutrition Follow Up: Chart reviewed. Noted pt is comfort care only. Rec changing diet to regular. RD following as needed.
[2017-09-07 12:00] VITALS: BP 117/52
--- NOTE | 2017-09-07 12:30 | NUR ---
Patient Name: JULIO BRAMBILA Admission Status: ER Accout number: [id number] Admission Date: 08-30-2017 : 1945 Admission Diagnosis:OTH COMPLICATION OF VASCULAR DIALYSIS CATHETER, INIT EN Attending: Francisco Burroughs Current LOS: 8 Anticipated DC Date: 09-07-2017 Planned Disposition: Nursing Facility C[facility] Cert Primary Insurance: MEDICARE A & B PLANNED EXTERNAL PROVIDER: [facility], [employer] [facility]PERATOR C[facility] MEDICAID BED Discharge Planning Comments: * Is the patient Alert and Oriented? No 0 * How many steps to enter\exit or inside your home? NONE 0 * PCP DOCTOR FOR [facility] DR. SOLORIO AT HOME 0 * Pharmacy [facility] 0 * Preadmission Environment Fpc Facility 0 * Facility Name [facility] 0 * ADLs Partial Dependent 0 * Partial ADLs (Assistance needed) Ambulation Bathing Dressing Medication Management Toileting Transfers 0 * Equipment Other 0 * Other Equipment ALL MEDICAL EQUIPMENT PROVIDED BY [facility] 0 * List name and contact numbers for known caregivers / representatives who currently or will assist patient after discharge: JORDIN MIRAMONTES, DTR, 0 * Community resources currently utilized Other 0 * Please name any agencies selected above. OUTPATIENT DIALYSIS, [facility], MWF, [facility] 0 * Additional services required to return to the preadmission environment? Yes * Can the patient safely return to the preadmission environment? Yes 0 * Has this patient been hospitalized within the prior 30 days at any hospital? Yes [address] FITZGERALD WHO REPORTS THAT HE HAS SPOKEN WITH PT'S DAUGHTER THIS MORNING AND THEY HAVE DECIDED ON HOSPICE AT [facility]. CM LOOKED FOR FAMILY IN ROOM, NO FAMILY PRESENT, PT CONFUSED. AURE CALLED PT'S DAUGHTER, JORDIN MIRAMONTES, ; JORDIN REPORTS THEY HAVE DECIDED ON HAVING HOSPICE AT [facility], WHERE PT WAS DOING REHAB BEFORE COMING TO THE HOSPITAL. JORDIN HAS NOT DISCUSSED THIS WITH [facility]. IMPORTANT MESSAGE FROM MEDICARE DISCUSSED AND QUALITY IMPROVEMENT NUMBER PROVIDED. AURE CALLED [facility], , SPOKE TO SHELLY WHO WILL HAVE RIGO CALL AURE SHORTLY. THEY CONTRACT WITH [facility] AND [facility]. AURE CALLED PT'S DAUGHTER, JORDIN MIRAMONTES, WHO WOULD LIKE TO USE [facility]. JORDIN IN AGREEMENT WITH DISCHARGE TO [facility] TODAY FOR HOSPICE ADMISSION. CM CALLED [facility], , SPOKE TO SUMIT WHO REPORTS THEY PLAN TO ACCEPT PT BACK AND WILL REVIEW INFORMATION AND CALL CM BACK. CM ASKED FOR EXPEDITED REVIEW AND INFORMED [facility] THAT CM WILL CONTACT FOR DISCHARGE ORDERS ONCE ALL ARRANGEMENTS ARE MADE TO RECEIVE PT BACK WITH HOSPICE, TODAY IF POSSIBLE. CM FAXED REFERRAL TO [facility], . CM CALLED [facility], , SPOKE TO FIONA, ADMISSSION COORDINATOR, PROVIDED REFERRAL INFORMATION, FAXED REFERRAL TO [phone]. [facility] TO EVALUATE FOR ADMISSION TO HOSPICE AFTER ARRIVAL BACK AT [facility]. CM WAITING ON [facility] TO CONTACT CM WITH ACCEPTANCE FOR PT'S RETURN FOR ADMISSION TO HOSPICE WITH [facility]. ONCE ACCEPTED, NURSE REPORT TO BE CALLED TO [facility], , FAX DISCHARGE INFORMATION TO [facility] AT [phone]. PT TO TRANSPORT VIA AMBULANCE. [employer] Architect: Darius Evans
--- NOTE | 2017-09-07 12:58 | NUR ---
RESTING QUIETLY EYES CLOSED FSBS 104 WITH NO DISTRESS NOTED REPORTED TO KATERIN GRAHAM RN SIDE RAILS UP CALL LIGHT IN REACH
--- NOTE | 2017-09-07 15:55 | NUR ---
Patient Name: JULIO BRAMBILA Encounter No: [id number] : 1945 Primary Insurance: MEDICARE A & B Anticipated DC Date: 09-07-2017 Planned Disposition: Nursing Facility C[facility] Cert External Planned Provider: [facility], AEROPHYSICIST CARE MEDICAID BED DCP follow-up note: CM RECEIVED CALL FROM [facility], , SPOKE TO FIONA, ADMISSSION COORDINATOR. [facility] TO ADMIT PT TO HOSPICE AFTER ARRIVAL BACK AT [facility]. CM CALLED [facility], , SPOKE TO LUCIA WHO REPORTS THEY WILL ACCEPT PT TODAY AND WOULD LIKE HEMOSPLIT REMOVED FOR PT'S COMFORT PRIOR TO RETURN TO THE [facility] PT WILL NOT HAVE DIALYSIS ON HOSPICE. CM CALLED JORDIN MIRAMONTES, , WHO UNDERSTANDS THAT PT WILL NOT HAVE DIALYSIS ONCE ADMITTED TO HOSPICE AND IS IN AGREEMENT WITH THIS. CM EXPLAINED THAT PT WILL DISCHARGE TODAY TO [facility] AND [facility] WILL ADMIT PT UPON ARRIVAL THIS EVENING. CM PAGED RENAL NURSE ISABEL, REQUESTED ORDER FOR HEMOSPLIT REMOVAL AND RECEIVED ORDER. CM ADVISED BY NURSING THAT FLOOR NURSE DOES NOT REMOVE HEMOSPLIT. CM CALLED [facility], LEFT MESSAGE ASKING FOR RETURN CALL AND DIRECTIONS. CM FAXED DISCHARGE INFORMATION TO [facility] AT [phone]. [facility] WANTS HEMOSPLIT REMOVED FOR PT'S COMFORT. ONCE QUESTION REGARDING HEMOSPLIT REMOVAL IS ANSWERED, NURSE REPORT TO BE CALLED TO [facility], , PT TO TRANSPORT VIA AMBULANCE. NOTIFY [facility] AT [phone], WHEN PT LEAVES HOSPITAL VIA AMBULANCE. Guidance Adviser: Darius Evans
--- NOTE | 2017-09-07 16:35 | NUR ---
CALLED REPORT TO JONO MOSQUERA, AT [facility]. CALLED [facility] FOR TRANSPORT, WILL BE ABOUT 45MIN. WILL CONTINUE TO MONITOR
--- NOTE | 2017-09-07 17:16 | NUR ---
PT IS IN BED AND CRYING OUT "HELP ME". PT WILL NOT TELL ME WHAT SHE NEEDS HELP WITH. WILL CONTINUE TO MONITOR
--- NOTE | 2017-09-07 18:48 | NUR ---
PT LEFT FLOOR VIA STRETCHER WITH [facility]. WILL D/C
== END 2017-09-07 18:49 | DRG 314 ==
LOC: D.ER 17:14 → D.ICU 23:16 → D.M2 23:16 → D.ICU 08-31 18:28 → D.M2 09-02 11:20
PROVIDERS: Internal Medicine Nephrology; Physician Assistant Medical; Surgery; ADMIT Internal Medicine Nephrology
PROC: 06H033Z Insertion of Infusion Device into Inferior Vena Cava, Percutaneous Approach (ICD-10-PCS; 2017-08-31)
PROC: B5191ZA Fluoroscopy of Inferior Vena Cava using Low Osmolar Contrast, Guidance (ICD-10-PCS; 2017-08-31)
PROC: 02PY33Z Removal of Infusion Device from Great Vessel, Percutaneous Approach (ICD-10-PCS; principal; 2017-08-31 12:00)
PROC: 5A1D70Z Performance of Urinary Filtration, Intermittent, Less than 6 Hours Per Day (ICD-10-PCS; 2017-09-01)
DX: T82.49XA Other complication of vascular dialysis catheter, initial encounter (principal); N18.6 End stage renal disease; Y83.8 Other surgical procedures as the cause of abnormal reaction of the patient, or of later complication, without mention of misadventure at the time of the procedure; E11.22 Type 2 diabetes mellitus with diabetic chronic kidney disease; Z99.2 Dependence on renal dialysis; F41.9 Anxiety disorder, unspecified; F32.9 Major depressive disorder, single episode, unspecified; I95.9 Hypotension, unspecified; D63.1 Anemia in chronic kidney disease; F03.90 Unspecified dementia, unspecified severity, without behavioral disturbance, psychotic disturbance, mood disturbance, and anxiety; R41.0 Disorientation, unspecified; W19.XXXA Unspecified fall, initial encounter; Z91.81 History of falling; E83.39 Other disorders of phosphorus metabolism; Z66 Do not resuscitate; M16.12 Unilateral primary osteoarthritis, left hip